=== PATIENT | female | born 2000 | race Caucasian/White ===

== ENCOUNTER 2018-03-12 04:05 | Emergency (ER) | payer BC, SELFPAY ==
[2018-03-12 04:06] VITALS: BP 131/75; PULSE 86; RESP 18; TEMP 36.4; O2SAT 98; BMI 20.7
--- NOTE | 2018-03-12 04:31 | ED.VISSUMM ---
- ER Visit Summary Date of Service: 03/12/18 Chief Complaint: [] Vertigo History of Present Illness: The patient is a 17 F complaining of vertigo symptoms for last 4 hours when she tries to sleep. Laying down seems to make it worse. She had 3 episodes of emesis. Relieved by sitting up. She has had vertigo in the past but never to the point where she has had to vomit. She had a cold last week but that resolved. Physical Examination: [] Vital signs reviewed General: Well-nourished well-developed Head: Normocephalic atraumatic Eyes: Pupils equal round and reactive to light extraocular movements intact ENT: TMs clear no hemotympanum no trauma Neck: Nontender full range of motion Cardiovascular: Regular rate rhythm no murmurs normal S1-S2 Respiratory: No distress clear to auscultation bilaterally chest nontender Abdomen: Soft nontender nondistended normal bowel sounds no masses Back: Nontender no CVA tenderness Extremities: Nontender active range of motion ?4 extremities no trauma Skin: Normal color no trauma Neuro alert oriented cranial nerves II through XII intact normal strength sensation reflexes. No nystagmus. No vertigo when sitting up. Test Results: [] Emergency Department Course and Treatment: [] Given oral meclizine and Zofran. At this time I feel the patient has peripheral vertigo. Given information on the Jayla maneuver for which she will do a home. Given a prescription for meclizine and Zofran for home. Do not feel she has a central cause that would warrant imaging of her head Treatment Plan: [] Disposition: [] Impression: [] Acute peripheral vertigo This note was generated with [employer] dictation software. It may contain incorrect words, spelling, and punctuation that were not noted in review of the chart prior to signing ED Disposition - Plan for ED Patient: Chief Complaint: Dizziness Referrals: [facility] Doctor,Out of [Primary Care Provider] -
[2018-03-12] MEDS: Ondansetron ODT 4 MG Tablet 8 MG PO (04:32)
[2018-03-12] MEDS: Meclizine HCl 25 MG Tablet PO (04:32)
--- NOTE | 2018-03-12 05:24 | DCINST.ED_ITS ---
ED Disposition - Plan for ED Patient: Disposition: Home or Assisted Living Chief Complaint: Dizziness Instructions: ED BPV Vertigo Prescriptions: Ondansetron [Zofran Odt] 4 mg PO Q8H PRN PRN #10 tab PRN Reason: Nausea Meclizine HCl [Antivert] 25 mg PO 4X/DAY PRN PRN #20 tab PRN Reason: Dizziness Referrals: [facility] Doctor,Out of [Primary Care Provider] - Jason Farnsworth MD [STAFF PHYSICIAN] -
== END 2018-03-12 05:41 | disposition home or self-care (01) ==
PROVIDERS: Emergency Provider Emergency Medicine
DX: H81.399 Other peripheral vertigo, unspecified ear (principal); J45.909 Unspecified asthma, uncomplicated; Z79.51 Long term (current) use of inhaled steroids
CPT/HCPCS: 99283